=== PATIENT | female | born 1990 | race African-American/Black ===

== ENCOUNTER 2018-05-27 11:37 | Emergency (ER) | payer OTHER, SELFPAY | END 2018-05-27 12:30 | disposition home or self-care (01) | LOC: SCSER 11:37 | DX: R51 Headache (principal); M54.6 Pain in thoracic spine; M54.2 Cervicalgia | CPT/HCPCS: 99283 ==

== ENCOUNTER 2018-11-08 09:29 | Emergency (ER) | payer OTHER, SELFPAY ==
[2018-11-08 09:52] LABS: Bilirubin Negative (Negative); Blood, Urine Negative (Negative); Clarity Clear (Clear); Glucose, Urine (Dipstick) Negative (Negative); Leukocyte Moderate (Negative); Nitrite Negative (Negative); Protein, Urine (Dipstick) Negative (Neg-Trace); Specific Gravity, Urine 1.015 (1.005-1.030); Urobilinogen 0.2 mg/dL (0.2-1.0)
[2018-11-08 09:56] LABS: Pregnancy Test - Urine (BHCG) Negative (Negative); Pregu Control Background? CLEAR/WHITE (CLR/WHITE); Pregu Control Bar Appear? YES (CONTROL BAR); Specific Gravity 1.015 (1.002-1.036)
[2018-11-08 09:58] LABS: Bacteria/HPF 2+ HPF (None Seen); Hyaline Casts/LPF NONE SEEN LPF (0-3 Hyaline); RBC/HPF 0-3 HPF (0-3); Squamous Epithelial 0-3 HPF (0-3)
== END 2018-11-08 10:13 | disposition home or self-care (01) ==
LOC: SCSER 09:29
DX: N39.0 Urinary tract infection, site not specified (principal)
CPT/HCPCS: 81003; 81015; 81025; 87086; 99283